=== PATIENT | male | born 1955 | race Caucasian/White ===

== ENCOUNTER → 2016-06-14 | Day surgery (SDC) | payer MEDICARE, MEDICAID ==
[~2016-06-14] MED LIST: ACET325T21 PO; ALBU2.5V5 NEB; ASPI81TA44 PO; ATOR40TA PO; BUME1TAB PO; CALC11776 PO; CARV12.52 PO; CHOL500050 PO; CLOP75TA PO; DAPT500V IV; FERR-26 PO; GABA600T2 PO; INSU100C SQ; INSU100C4 SQ; INSU100V13 SQ; IV RINGERS,LACTATED 1000ML 1,000 ML IV SCH; LIDOCAINE 2% PF Vial for OR 5 ML VIAL. ONE; MECL25TA3 PO; METOPROLOL TARTRATE 5 MG/5 ML VIAL. ONE; PARO30TA45 PO; POLY17PO29 PO; PROPOFOL 20 ML IV ONE; PYRI60TA PO
[2016-06-14 08:03] VITALS: BP 176/79
== END | disposition home or self-care (01) ==
LOC: ENDOS 05:48
PROVIDERS: ATTEND Internal Medicine Gastroenterology
DX: Z12.11 Encounter for screening for malignant neoplasm of colon (principal); K64.1 Second degree hemorrhoids; D50.9 Iron deficiency anemia, unspecified; K25.7 Chronic gastric ulcer without hemorrhage or perforation; I10 Essential (primary) hypertension; E66.9 Obesity, unspecified; M19.90 Unspecified osteoarthritis, unspecified site; E11.9 Type 2 diabetes mellitus without complications; K29.50 Unspecified chronic gastritis without bleeding; F32.9 Major depressive disorder, single episode, unspecified; F41.9 Anxiety disorder, unspecified; Z98.41 Cataract extraction status, right eye; Z98.42 Cataract extraction status, left eye
CPT/HCPCS: 43235; 82947; G0121; J2704; J3490